=== PATIENT | female | born 1975 | race Caucasian/White ===

== ENCOUNTER 2017-12-24 18:09 | Inpatient (IN) | payer OTHER ==
[~2017-12-24] VITALS: Ht 162.6 cm; Wt 127.6 kg
[2017-12-24 19:37] LABS: ABSOLUTE BASOPHIL COUNT 0 /CUMM (0.0-0.2); ABSOLUTE EOSINOPHIL COUNT 0.4 /CUMM (0.0-0.7); ABSOLUTE GRANULOCYTE CT 8.9 /CUMM (1.4-6.5); ABSOLUTE LYMPH COUNT 2.2 /CUMM (1.2-3.4); ABSOLUTE MONOCYTE COUNT 0.5 /CUMM (0.10-0.60); BASOPHIL % 0.1 % (0.0-2.0); EOSINOPHIL % 3.4 % (0-5); GRANULOCYTE % 74.1 % (42.2-75.2); MEAN CORPUSCULAR HGB CONC 33.3 G/DL (33.0-37.0); MEAN PLATELET VOLUME 7.8 FL (7.4-10.4); RBC DISTRIBUTION WIDTH 14.4 % (11.5-14.5); RED BLOOD CELL CT 4.88 /CUMM (4.20-5.40)
--- NOTE | 2017-12-24 19:47 | ED GENERAL ADULT ---
History of Present Illness General Chief Complaint: General Adult Stated Complaint: BIBA FOR LUPUS FLARE-UP Source: patient Exam Limitations: no limitations Vital Signs & Intake/Output Vital Signs & Intake/Output Vital Signs Date Time Temp Pulse Resp B/P B/P Pulse O2 O2 Flow FiO2 Mean Ox Delivery Rate 12/25 0107 98.3 94 20 120/80 93 Room Air 12/25 0020 104/58 12/24 2348 98.3 84 20 98/52 95 Room Air 12/24 2159 97.7 92 16 124/59 96 Room Air 12/24 1817 97.9 99 16 138/65 98 Room Air ED Intake and Output 12/25 0000 12/24 1200 Intake Total 100 Output Total Balance 100 Intake, IV 100 Patient 220 lb Weight Weight Reported by Patient Measurement Method Allergies Coded Allergies: hydromorphone (From DILAUDID) (Mild, NAUSEA 12/24/17) Uncoded Allergies: STRAWBERRIES (Severe, ANAPHYLAXIS 12/24/17) MUSHROOMS (Mild, HIVES 12/24/17) Triage Note: PT BIBA FROM HOME FOR "PAIN ALL OVER FROM LUPUS" PER PT. PT STATED IT STARTED THIS AM. SHE TOOK ONE TRAMADOL W/ NO RELIEF. PT SCREAMS WHEN TOUCHED Triage Nurses Notes Reviewed? yes Onset: Abrupt Duration: day(s): (1), constant, continues in ED, getting worse Timing: recent history Injury Environment: home Severity: moderate, severe Severity Numbers: 10 No Modifying Factors: none Modifying Factors: Worsens With: movement. Associated Symptoms: back pain LMP (ages 10-50): unknown : No Patient currently breastfeeds: No HPI: 42-year-old female with a past medical history of lupus, ovarian/uterine cancer brought in by AMBULANCE for evaluation of a possible lupus flare. Patient reports that today she developed severe pain in her lower back radiating to her upper back. There was no trauma or triggering event pain began while at rest. The pain is described as sharp and stabbing and is severe 10 out of 10. It is worse with any type of movement she states she is unable to ambulate. She feels like the pain is so severe to be here feel short of breath. No abdominal pain nausea vomiting. She does note some numbness in her bilateral lower extremities no urinary symptoms bowel or bladder dysfunction fever hemoptysis lower extremity edema or trauma. She reports she has had multiple similar episodes in the past which is been admitted to [facility]. Her lupus history with Plaquenil. She tried taking tramadol at home without any improvement. (Melo Quick) Reconcile Medications Levothyroxine Sodium 100 MCG TABLET 1 TAB PO DAILY Hypothyroidism (Reported) Trazodone HCl 50 MG TABLET 0.5 TAB PO QPM Insomnia (Reported) (Aubree TORREZ,Nhan Keller) Past History Travel History Traveled to [place] past 21 day No Medical History Any Pertinent Medical History? see below for history Endocrine: LUPUS Cancer(s): cervical cancer, ovarian cancer Surgical History Surgical History: non-contributory Psychosocial History What is your primary language Tristanian Tobacco Use: Never used ETOH Use: occasional use Illicit Drug Use: denies illicit drug use Family History Hx Contributory? No (Melo Quick) Review of Systems Review of Systems Constitutional: Reports: no symptoms. EENTM: Reports: no symptoms. Respiratory: Reports: no symptoms. Cardiovascular: Reports: no symptoms. GI: Reports: no symptoms. Genitourinary: Reports: no symptoms. Musculoskeletal: Reports: see HPI, back pain, muscle pain, muscle stiffness. Skin: Reports: no symptoms. Neurological/Psychological: Reports: no symptoms. Hematologic/Endocrine: Reports: no symptoms. Immunologic/Allergic: Reports: no symptoms. All Other Systems: Reviewed and Negative (Melo Quick) Physical Exam Physical Exam General Appearance: well developed/nourished, alert, awake, anxious, moderate distress, obese Head: atraumatic, normal appearance Eyes: Bilateral: normal appearance, PERRL, EOMI. Ears, Nose, Throat: hearing grossly normal Neck: normal inspection, supple, full range of motion Respiratory: normal breath sounds, chest non-tender, no respiratory distress, lungs clear Cardiovascular: regular rate/rhythm, normal peripheral pulses Peripheral Pulses: 2+ radial (R), 2+ radial (L) Gastrointestinal: normal bowel sounds, soft, no organomegaly, tenderness ( bilateral flank) Back: patient is laying on her back and is unable to move in order to inspect and palpate her spine Extremities: normal inspection, no edema, range of motion of the bilateral lower extremities is reduced due to pain. Full range of motion of the bilateral upper extremities is intact sensory supply INTACT TO bilateral lower extremities vascular supply intact bilaterally Neurologic/Psych: no motor/sensory deficits, awake, alert, oriented x 3, normal mood/affect Skin: intact, normal color, warm/dry Lymphatic: no anterior cervical meredith Core Measures ACS in differential dx? No CVA/TIA Diagnosis: No Sepsis Present: No Sepsis Focused Exam Completed? No (Margarito RODRIGUEZ,Melo) Progress Differential Diagnoses I considered the following diagnoses in my evaluation of the patient: [Lupus flare, muscle strain, herniated disc, cauda equina, malignancy, epidural abscess , AAA, kidney stone, pyelonephritis, pneumonia, PE] Plan of Care: Orders Procedure Date/time Status Regular Diet 12/25 B Active XRY-LUMBOSACRAL SPINE 4 VIEWS 12/25 2216 Active XRY-CHEST XRAY, TWO VIEWS 12/25 2216 Active CBC WITHOUT DIFFERENTIAL 12/25 06 Active BASIC ELECTROLYTES PLUS BUN&CR 12/25 06 Active Weight 12/25 010 Active Vital Signs 12/25 010 Active Teach/Educate 12/25 99 Active Pain Treatment and Response 12/25 99 Active Nutritional Intake, Monitor 12/25 010 Active Isolation 12/25 99 Active Intake & Output 12/25 99 Active Patient Care Conference 12/25 010 Active Activity/Ambulation 12/25 010 Active D-DIMER 12/24 UNK Complete Add-on Test (ER Only) 12/24 2332 Active Pathway - chart 12/24 2305 Active House Staff 12/24 2305 Active Code Status 12/24 2305 Active Saline Lock 12/24 225 Active Misc Message 12/24 2256 Active ED Holding Orders 12/24 225 Active Admit to inpatient 12/24 225 Active Vital Signs 12/24 225 Active Code Status 12/24 2257 Complete Patient Data 12/24 2256 Active Intake & Output 12/24 2238 Active HUMAN BETA HCG SCREEN 12/24 1924 Complete EKG 12/24 192 Active Add-on Test (ER Only) 12/24 1856 Active URINALYSIS 12/24 1818 Active TROPONIN LEVEL 12/24 181 Complete COMPREHENSIVE METABOLIC PANEL 12/24 181 Complete CBC WITHOUT DIFFERENTIAL 12/24 181 Complete VTE Mechanical Prophylaxis 12/24 UNK Active Current Medications Sig/An Start time Last Medication Dose Stop Time Status Admin Trazodone HCl 25 MG QPM 12/25 2100 AC (Desyrel) Enoxaparin Sodium 40 MG DAILY 12/25 0900 AC (Lovenox) Hydroxychloroquine 200 MG DAILY 12/25 0900 AC Sulfate (Plaquenil 200MG Tab) Levothyroxine Sodium 0.1 MG DAILY AC 12/25 0700 AC (Synthroid) Methylprednisolone 40 MG Q8 12/25 0600 AC (Solumedrol) Morphine Sulfate 4 MG Q4P PRN 12/25 0115 AC (MORPHINE SULFATE) Lorazepam 1 MG Q6P PRN 12/24 2345 AC (Ativan) Acetaminophen 650 MG Q6P PRN 12/24 2315 AC (Tylenol) Oxycodone/ 1 TAB Q6P PRN 12/24 2315 AC Acetaminophen (Percocet) Laboratory Tests 12/24/17 1924: Anion Gap 9, Estimated GFR > 60, BUN/Creatinine Ratio 18.9, Glucose 105 H, Calcium 9.4, Total Bilirubin 0.6, AST 19, ALT 23, Alkaline Phosphatase 149 H, Troponin I < 0.01, Total Protein 7.1, Albumin 3.9, Globulin 3.2, Albumin/ Globulin Ratio 1.2, Total Beta HCG NEGATIVE, D-Dimer High Sensitivty 213, CBC w Diff NO MAN DIFF REQ, RBC 4.88, MCV 84.0, MCH 28.0, MCHC 33.3, RDW 14.4, MPV 7.8 , Gran % 74.1, Lymphocytes % 18.5 L, Monocytes % 3.9, Eosinophils % 3.4, Basophils % 0.1, Absolute Granulocytes 8.9 H, Absolute Lymphocytes 2.2, Absolute Monocytes 0.5, Absolute Eosinophils 0.4, Absolute Basophils 0 Patient is here for evaluation of severe low back pain that is possibly a lupus flare. She reports multiple similar episodes in the past. Currently she is here with severe low back pain that started today without trauma or triggering event it is similar to previous episodes of lupus. Exam is significantly limited secondary to pain causing patient to be unable to cooperate. Her vitals are stable labs ordered EKG. Initially CT scans were ordered however CAT scan currently is down patient refused to be transferred for a CAT scan or x-rays at this time secondary to pain. Patient was given multiple IV pain medications including IV Toradol IV morphine IV Tylenol IV Solu-Medrol and IV Ativan. Patient was able to get some relief when she lies still but is still unable to move at all. Exam is still very limited she is still unable to get any imaging done. Patient will require admission for intractable back pain and lupus flare. She will require serial labs IV pain meds, IV steroids physical therapy consult case management consult imaging of her back and rheumatologic consult. case discussed with Dr. Mak he agrees Initial ED EKG: none (Melo Quick) Departure Departure Disposition: STILL A PATIENT Condition: Stable Referrals: Unknown (PCP/Family) Departure Forms: Customer Survey General Discharge Information Admission Note Spoke With: Chantal Harding MD Documentation of Exam: Documentation of any treatments & extenuating circumstances including Concerns Regarding Discharge (functional status, medication knowledge or non-compliance, living conditions, etc.) that warrant an admission rather than observation: [ Patient required multiple IV pain medications in order to be comfortable she is still unable to move or ambulate secondary to pain she'll require IV pain control, serial labs, IV steroids, physical therapy, case management, rheumatology] (Melo Quick) Departure Clinical Impression Primary Impression: Lupus (systemic lupus erythematosus) Qualifiers: Systemic lupus erythematosus type: unspecified Systemic lupus erythematosus organ involvement: unspecified Qualified Code: M32.9 - Systemic lupus erythematosus, unspecified Secondary Impressions: Back pain PA/INSPECTOR PROCESS Co-Sign Statement Statement: ED Attending supervision documentation- [x] I saw and evaluated the patient. I have also reviewed all the pertinent lab results and diagnostic results. I agree with the findings and the plan of care as documented in the PA's/INSPECTOR PROCESS's documentation. 12/24/17, 22:45... pt with lupus flare, causing significant back pain... merits iv steroids, consider rheum consult/pulse dose steroids if not improved in AM, and other supportive meds. [] I have reviewed the ED Record and agree with the PA's/INSPECTOR PROCESS's documentation. [] Additions or exceptions (if any) to the PAs/INSPECTOR PROCESS's note and plan are summarized below: [] (Aubree TORREZ,Nhan Keller) Critical Care Note Critical Care Note Critical Care Time: non-applicable (Melo Quick)
[2017-12-24 19:58] LABS: PLATELET COUNT 286 /CUMM (130-400)
--- NOTE | 2017-12-24 23:11 | History & Physical ---
Jia Flores 12/24/17 2311: General Information and HPI MD Statement: I have seen and personally examined CHARISSA TAN and documented this H&P. The patient is a 42 year old F who presented with a patient stated chief complaint of [back pain/lupus flare]. Source of Information: patient Exam Limitations: no limitations History of Present Illness: 42-year-old female with a past medical history significant for systemic lupus erythematosus(not on any meds for SLE) , ovarian/uterine cancer S/P shelby/bso, b/l prophylactic mastectomy, who presented with a back pain x 1 day. [facility] reports that the pain started suddenly when she woke up, its was a shootimng pain that radiated from lower to upper back. 9/10 intensity. She feels that her 'spine locks up'. She took tramadol, but it didnt help her. Now her pain is 7.5/ 10. Also complains of numbness & tingling which comes & goes. She states that her back pain is generally triggered during her 'lupus flares'. Her last flare was 2 years ago for which she was taken to [facility]. She was dilaudid which helped her. However, she was placed on hydroxycholroquine during her flare which she continued for up to a year and was then discontinued of it. She follows Dr Hart in . Aslo mentions: dizziness, vertigo for the past few weeks. No room spinning around her Allergies/Medications Allergies: Coded Allergies: hydromorphone (From DILAUDID) (Mild, NAUSEA 12/24/17) Uncoded Allergies: STRAWBERRIES (Severe, ANAPHYLAXIS 12/24/17) MUSHROOMS (Mild, HIVES 12/24/17) Past History Travel History Traveled to [place] past 21 day No Medical History Endocrine: LUPUS Cancer(s): cervical cancer, ovarian cancer Surgical History Surgical History: non-contributory Past Family/Social History Family History Relations & Conditions if any Relation not specified for: Systemic lupus erythematosus Psychosocial History Where do you live? Home Who Do You Live With? spouse, child Services at Home: None Smoking Status: Never Smoked ETOH Use: occasional use Illicit Drug Use: denies illicit drug use Review of Systems Review of Systems Constitutional: Reports: chills. EENTM: Reports: no symptoms. Cardiovascular: Reports: no symptoms. Respiratory: Reports: no symptoms. GI: Reports: no symptoms. Genitourinary: Reports: no symptoms. Musculoskeletal: Reports: see HPI. Skin: Reports: no symptoms. Neurological/Psychological: Reports: no symptoms. Hematologic/Endocrine: Reports: no symptoms. Immunologic/Allergic: Reports: no symptoms. All Other Systems: Reviewed and Negative Exam & Diagnostic Data Last 24 Hrs of Vital Signs/I&O Vital Signs Date Time Temp Pulse Resp B/P B/P Pulse O2 O2 Flow FiO2 Mean Ox Delivery Rate 12/25 0654 98.7 97 20 110/80 95 Room Air 12/25 0107 98.3 94 20 120/80 93 Room Air 12/25 0020 104/58 12/24 2348 98.3 84 20 98/52 95 Room Air 12/24 2159 97.7 92 16 124/59 96 Room Air 12/24 1817 97.9 99 16 138/65 98 Room Air Intake & Output 12/25 0800 12/25 0000 12/24 1600 Intake Total 100 Output Total Balance 100 Intake, IV 100 Patient 281 lb 220 lb Weight Weight Bed scale Reported by Patient Measurement Method Physical Exam General Appearance Alert, Oriented X3, Cooperative, No Acute Distress Skin No Rashes, No Breakdown, No Significant Lesion Skin Temp/Moisture Exam: Cool/Dry Sepsis Skin Exam (color): Normal for Ethnicity HEENT Atraumatic, PERRLA, EOMI, Mucous Membr. moist/pink Neck Supple, No JVD, No thryomegaly, +2 Carotid Pulse wo Bruit Cardiovascular Regular Rate, Normal S1, Normal S2, No Murmurs Lungs Clear to Auscultation, Normal Air Movement Abdomen Normal Bowel Sounds, Soft, No Tenderness, No Hepatospenomegaly, No Masses Neurological Normal Speech, Strength at 5/5 X4 Ext, Normal Tone, Sensation Intact Extremities No Clubbing, No Cyanosis, No Edema, Normal Pulses, No Tenderness/ Swelling Assessment/Plan Assessment: 42-year-old female with a past medical history significant for systemic lupus erythematosus(not on any meds for SLE) , ovarian/uterine cancer S/P shelby/bso, b/l prophylactic mastectomy, who presented with a back apin x 1 day. Vitals on adm: Stable, afebrile Problems: 1. SLE with Lupus Flare 2. Severe back pain 3. History of Hypothyroidism A& P: -Admit to gen med floor -pain control: follow pain pathway. -Please note; rolly gives her severe nausea/vomiting. -Solumedrol IV 40 mg Q8 -Start hydroxycholorquine 200mg daily. -Obtain old records from Dr Hart in . DVT PX: Enoxaparin SQ Diet: regular Code: FC (Patient states that if her quality of life is expected to be poor, she would not like aggressive intervention including chest compressions and intubation, however, if her condition is not critical she would like to have an attempt of CPR) As Ranked By This Provider Problem List: 1. Lupus (systemic lupus erythematosus) Qualifiers Systemic lupus erythematosus type: unspecified Systemic lupus erythematosus organ involvement: unspecified Qualified Code: M32.9 - Systemic lupus erythematosus, unspecified 2. Back pain Core Measures/Misc (01/12) Acute Coronary Syndrome ACS Diagnosis: No Congestive Heart Failure Congestive Heart Failure Diagnosis No Cerebrovascular Accident CVA/TIA Diagnosis: No VTE (View Protocol) VTE Risk Factors Age>40 No Mechanical VTE Prophylaxis d/t N/A MechProphylax Ordered No VTE Pharm Prophylaxis d/t NA PharmProphylax ordered Sepsis (View protocol) Sepsis Present: No If YES complete Sepsis Event Note If YES complete Sepsis Event Note Chantal Harding MD 12/25/17 0004: Core Measures/Misc (01/12) Sepsis (View protocol) If YES complete Sepsis Event Note If YES complete Sepsis Event Note Attending MD Review Statement Attending Statement Attending MD Statement: examined this patient, discuss w/resident/PA/TELEMARKETING REPRESENTATIVE, agreed w/resident/PA/TELEMARKETING REPRESENTATIVE, reviewed EMR data (avail) Attending Assessment/Plan: 42F PMH SLE presenting with lupus flare. Patient typically has asymptomatic lupus and had been taken off of Plaquenil many months ago. Her flares occur every 1-2 years and present as diffuse body pain, worst in lower back, and this occurrence is typical for a flare. She is unable to move due to pain. She is breathing comfortably, no GI symptoms, no neurological symptoms. Neuro and cardiopulmonary exam are normal. 1. Lupus flare 2. Intractable back pain Plan - Admit to general medicine - Start Solumedrol 40mg daily - Start Plaquenil - Morphine IV 4mg q4h PRN - Ativan 1mg q6h PRN - Obtain records from patient's gasket inspector and for consult - Continue home medications - DVT PPx Gokul TORREZ,Jose Manuel 12/25/17 0047: General Information and HPI Allergies/Medications Home Med list Cyclobenzaprine HCl 10 MG TABLET 1 TAB PO TID PRN Back Pain . Diazepam (Valium) 2 MG TABLET 1 TAB PO TID PRN Back pain/SLE flare . Levothyroxine Sodium 100 MCG TABLET 1 TAB PO DAILY Hypothyroidism (Reported) Prednisone 20 MG TABLET 2 TAB PO DAILY SLE/Back pain . Trazodone HCl 50 MG TABLET 0.5 TAB PO QPM Insomnia (Reported) Core Measures/Misc (01/12) Sepsis (View protocol) If YES complete Sepsis Event Note If YES complete Sepsis Event Note Resident Review Statement Resident Statement: examined this patient, discussed with production intern, reviewed EMR data (avail) Other Findings: 42 yo F with PMH of SLE (dx at age 23), uterine cancer s/p hysterectomy with b/l mastectomy presented to the ED with complains of severe lower back since this morning. The patient states she was in her usual state of health until this morning when she was getting ready for work and started having severe, sharp lower back radiating upwards, 9/10 in severity, aggravated with movement/ ambulation and tingling sensation in her feet. She describes her back as 'spine locking up'. She took tramadol for her pain without relief. She also has been having some dizzy spells lately which she describes as room spinning around. She states that her back pain is generally triggered during her 'lupus flares'. Her last flare was 2 years ago for which she was taken to [facility]. Currently she is not on any medications for SLE. However, she was placed on hydroxycholroquine during her flare which she continued for up to a year and was then discontinued of it. She follows Dr Hart in . ROS: dizziness, vertigo, tingling in feet Physical Exam: General Appearance: well developed/nourished, moderate distress Head: atraumatic, normal appearance Eyes: bilateral normal appearance, PERRL Ears, Nose, Throat: normal hearing and speech Respiratory: normal breath sounds (anterior chest), chest non-tender, no respiratory distress Cardiovascular: regular rate/rhythm, normal S1, S2, no M/R/G Gastrointestinal: soft, non-tender Back: unable to be assessed as patient has significant pain with movement. SLR not performed. Extremities: no edema Neurologic/Psych: awake, alert, oriented x 3, Skin: intact, normal color, warm/dry Assessment: 1. SLE with Lupus Flare 2. Severe back pain 3. History of Hypothyroidism Plan: * Admit patient to general medicine floor * Start IV Solu-Medrol 40mg q8. Will taper rapidly. * Start hydroxycholorquine 200mg daily. Can increase to BID if needed. * Pain control with tylenol (mild), percocet (moderate), morphine (severe). Patient states dilaudidd gives her severe nausea/vomiting. * Obtain old records from Dr Hart in . * Diet: Regular * DVT Prophylaxis: SC Lovenox * Code: Full Code (Patient states that if her quality of life is expected to be poor, she would not like aggressive intervention including chest compressions and intubation, however, if her condition is not critical she would like to have an attempt of CPR)
[2017-12-24] MEDS ORDERED: LEVOTHYROXINE100 MC1 PO (23:51)
[2017-12-24] MEDS ORDERED: TRAZODONE HCL50 M1 PO (23:53)
[2017-12-25 01:07] VITALS: BP 120/80
[2017-12-25 06:54] VITALS: BP 110/80
--- NOTE | 2017-12-25 07:43 | PN- Housestaff ---
See Addendum Alexandre Flores 12/25/17 0743: Subjective Follow-up For: Intractable back pain Subjective: Patient seen and examined at bedside. she was complaining of intractable back pain since 3 days. She denies fever, chills, abdominal pain, palpitation, diarrhea, constipation, burning micturition Review of Systems Constitutional: Reports: see HPI. Objective Last 24 Hrs of Vital Signs/I&O Vital Signs Date Time Temp Pulse Resp B/P B/P Pulse O2 O2 Flow FiO2 Mean Ox Delivery Rate 12/25 1541 98.2 102 20 120/80 94 12/25 0654 98.7 97 20 110/80 95 Room Air 12/25 0107 98.3 94 20 120/80 93 Room Air 12/25 0020 104/58 12/24 2348 98.3 84 20 98/52 95 Room Air 12/24 2159 97.7 92 16 124/59 96 Room Air Intake & Output 12/25 1600 12/25 0800 12/25 0000 Intake Total 810 240 100 Output Total 800 Balance 10 240 100 Intake, IV 10 100 Intake, Oral 800 240 Output, Urine 800 Patient 281 lb 220 lb Weight Weight Bed scale Reported by Patient Measurement Method Physical Exam General Appearance: Alert, Oriented X3, Cooperative, No Acute Distress HEENT: Atraumatic, PERRLA, EOMI, Mucous Membr. moist/pink Neck: Supple, No JVD, No thryomegaly, +2 Carotid Pulse wo Bruit Lymphatic: Axillary nl, Cervical nl Lungs: Clear to Auscultation, Normal Air Movement Abdomen: Normal Bowel Sounds, Soft, No Tenderness, No Hepatospenomegaly, No Masses Neurological: Normal Gait, Normal Speech, Strength at 5/5 X4 Ext, Normal Tone, Sensation Intact, Cranial Nerves 3-12 NL, Reflexes 2+ Extremities: No Clubbing, No Cyanosis, No Edema, Normal Pulses, No Tenderness/ Swelling Assessment/Plan Assessment: 42-year-old female with past medical history of SLE(status post followed by spanish medical interpreter), uterine cancer status post hysterectomy with prophylactic bilateral mastectomy, presented to emergency department complaining of severe back pain. At the time of presentation to emergency department her labs and vitals are following Vitals: Temperature 98.3, pulse 94, respiration 20, BP 1 20/80, pulse oximetry 93% Labs: WBC 12, hemoglobin 13.6, hematocrit 41, MCV 84 Sodium 140, potassium 4.6, chloride 105, carbon dioxide 24, bun 21, creatinine 0.9, glucose 105 AST 19, ALT 23, ALP 149 CRP 1.4, ESR 27 Problems list: -Intractable low back pain -History of SLE -Past medical history of uterine cancer -History of hypothyroidism Plan: -Admit to general medical floor -Pain medication -Contacted her spanish medical interpreter -X-ray of lumbar spine -X-ray of lumbar spine showing L3-L4 degeneration -There is no fracture -No muscle spasm -Prednisone 40 mg for 4 days -Flextra muscle relaxant -Ativan for anxiety -Anticipated discharge tomorrow morning if pain subsided. -Discharge summary will be sent to spanish medical interpreter -We will follow up with spanish medical interpreter on outpatient basis -Patient counseled regarding follow-up spanish medical interpreter -Full code -GI DVT profile Problem List: 1. Lupus (systemic lupus erythematosus) 2. Back pain Pain Ratin Pain Location: Backache Pain Goal: Remain pain free Pain Plan: Pain management pathway Tomorrow's Labs & Rationales: No lab Diamond,Janes 12/25/17 1308: Attending MD Review Statement Attending Statement Attending MD Statement: examined this patient, discuss w/resident/PA/FILM AND VIDEO GRAPHICS DESIGNER, agreed w/resident/PA/FILM AND VIDEO GRAPHICS DESIGNER, discussed with family, reviewed EMR data (avail), discussed with nursing, discussed with case mgmt, reviewed images, amended to note Attending Assessment/Plan: 42 o/f with pmh of SLE being managed by PCP outpatient off maintenance therpay for few years now comes with intractable back pain. Pateint back pain is improved this morning with steorids. Xray of lumbar spine is pending. Her CRP is borderline elevated 1.4 without diffuse constellaton of symptoms seen in SLE flare up. I would give her muscle relaxants at discharge with PO steorid taper and close follow up with PCP.
[2017-12-25 09:16] LABS: ABSOLUTE BASOPHIL COUNT 0 /CUMM (0.0-0.2); ABSOLUTE EOSINOPHIL COUNT 0 /CUMM (0.0-0.7); ABSOLUTE GRANULOCYTE CT 9.5 /CUMM (1.4-6.5); ABSOLUTE LYMPH COUNT 0.8 /CUMM (1.2-3.4); ABSOLUTE MONOCYTE COUNT 0 /CUMM (0.10-0.60); BASOPHIL % 0.1 % (0.0-2.0); EOSINOPHIL % 0 % (0-5); HEMATOCRIT 40.7 % (37-47); MEAN CORPUSCULAR HGB 28.1 PG (27.0-31.0); MEAN CORPUSCULAR HGB CONC 33.9 G/DL (33.0-37.0); MEAN PLATELET VOLUME 7.5 FL (7.4-10.4); PLATELET COUNT 352 /CUMM (130-400); RBC DISTRIBUTION WIDTH 14.4 % (11.5-14.5); RED BLOOD CELL CT 4.91 /CUMM (4.20-5.40); WHITE BLOOD CELL COUNT 10.3 /CUMM (4.8-10.8)
[2017-12-25 10:01] LABS: GRANULOCYTE % 91.8 % (42.2-75.2)
[2017-12-25] MEDS ORDERED: CYCLOBENZAPRINE10 M1 PO ×2 (10:06→17:12)
[2017-12-25] MEDS ORDERED: PREDNISONE10 M2 PO (10:06)
[2017-12-25] MEDS ORDERED: VALIUM2 M1 PO ×3 (10:06→17:12)
--- NOTE | 2017-12-25 10:07 | Patient Discharge Instructions ---
Discharge Instructions General Discharge Information Special Instructions: - Please follow up with your primary care physician within 1-2 weeks of discharge. Inform your primary care physician of this admission to [facility]. - Continue your current medications per discharge instructions. - Please watch for these problems: Fever, Chills, Nausea, Vomiting, Shortness of Breath, Productive Cough, Chest Pain/Discomfort, Abdominal Pain, Active Bleeding or Bloody urine/stool. Diet Continue normal diet: Yes Activity Full Activity/No Limits: Yes Acute Coronary Syndrome Inclusion Criteria At DC or during hospital stay patient has or had the following: ACS DIAGNOSIS No Discharge Core Measures Meds if any: Prescribed or Continued at Discharge Meds if any: NOT Prescribed or Continued at Discharge Congestive Heart Failure Inclusion Criteria At DC or during hospital stay patient has or had the following: CHF DIAGNOSIS No Discharge Core Measures Meds if any: Prescribed or Continued at Discharge Meds if any: NOT Prescribed or Continued at Discharge Cerebrovascular accident Inclusion Criteria At DC or during hospital stay patient has or had the following: CVA/TIA Diagnosis No Discharge Core Measures Meds if any: Prescribed or Continued at Discharge Meds if any: NOT Prescribed or Continued at Discharge Venous thromboembolism Inclusion Criteria VTE Diagnosis No VTE Type NONE VTE Confirmed by (Test) NONE Discharge Core Measures - Per Current guidelines, there needs to be overlap - treatment for the first 5 days of Warfarin therapy. - If discharged on Warfarin prior to 5 days of - overlap therapy, the patient will need to be - assessed for post discharge needs including - *Post discharge parental anticoagulation - *Warfarin and/or parental anticoagulation education - *Follow up date to check INR post discharge At least 5 days overlap therapy as Inpatient No Meds if any: Prescribed or Continued at Discharge Note: Overlap Therapy is Warfarin and Anticoagulant Meds if any: NOT Prescribed or Continued at Discharge
[2017-12-25] MEDS ORDERED: PREDNISONE20 M1 PO ×2 (10:11→17:12)
--- NOTE | 2017-12-25 14:35 | Discharge Summary ---
Visit Information Visit Dates Admission Date: 12/24/17 Discharge Date: 12/26/17 Hospital Course Course Attending Physician: Janes Fields MD Primary Care Physician: Unknown Hospital Course: Please fax above Discharge summery to Dr Meka Hart at [phone]. 42-year-old female morbidly obese with BMI 48.3kg/m2, with past medical history of SLE(status post followed by capping machine operator), uterine cancer status post hysterectomy with prophylactic bilateral mastectomy, presented to emergency department complaining of severe back pain. Hospital course: At the time of presentation to emergency department her labs and vitals are following Vitals: Temperature 98.3, pulse 94, respiration 20, BP 1 20/80, pulse oximetry 93% Labs: WBC 12, hemoglobin 13.6, hematocrit 41, MCV 84 Sodium 140, potassium 4.6, chloride 105, carbon dioxide 24, bun 21, creatinine 0.9, glucose 105 AST 19, ALT 23, ALP 149 CRP 1.4, ESR 27 She was treated for the following problem in hospital. Intractable backache: She was complaining of severe backache 02/04 at the time of presentation. Patient shifted to general medical floor for further management. X-ray lumbar spine and x-ray chest done. There was no acute changes except degenerative changes in L3-L4 vertebral. She was given pain medication, bedrest, started 40 mg IV steroid, tablet Flexeril, hydroxychloroquine and lorazepam (For anxiety). Patient had no insurance at that time. Contacted and discussed discussed with her capping machine operator about her care and hospital. Her home medication continued. She started feeling good on second day, started coming out of the bed and walk in hallway. She discharged on 40 mg short course of oral steroid for 5 days, Flexeril, lorazepam. Allergies: Coded Allergies: hydromorphone (From DILAUDID) (Mild, NAUSEA 12/24/17) Uncoded Allergies: STRAWBERRIES (Severe, ANAPHYLAXIS 12/24/17) MUSHROOMS (Mild, HIVES 12/24/17) Disposition Summary Disposition Principal Diagnosis: Intractable backache Additional Diagnosis: History of hypothyroidism, History of SLE Discharge Disposition: home or self care Discharge Instructions General Discharge Information Code Status: Full Code Patient's Diet: Regular diet Patient's Activity: Self-limited Follow-Up Instructions/Appts: Follow-up with primary care doctor in 1 week Follow up with capping machine operator in 2 weeks Medications at Discharge Discharge Medications: Continue taking these medications: Levothyroxine Sodium (Levothyroxine Sodium) 100 MCG TABLET 1 Tablet ORAL DAILY Qty = 30 Comments: LAST TAKEN: 12/26/17 @ 6 AM Trazodone HCl (Trazodone HCl) 50 MG TABLET 0.5 Tablet ORAL Every night Qty = 30 Comments: LAST TAKEN: 12/25/17 @ 10 PM Start taking the following new medications: Cyclobenzaprine HCl (Cyclobenzaprine HCl) 10 MG TABLET 1 Tablet ORAL THREE TIMES DAILY as needed for Back Pain Qty = 30 No Refills Instructions: . Diazepam (Valium) 2 MG TABLET 1 Tablet ORAL THREE TIMES DAILY as needed for Back pain/SLE flare Qty = 15 No Refills Instructions: . Prednisone (Prednisone) 20 MG TABLET 2 Tablet ORAL DAILY Qty = 10 No Refills Instructions: . Copies To: Diamond TORREZ,Janes
--- NOTE | 2017-12-25 14:41 | RADIOLOGY REPORT ---
EXAMINATION: XR CHEST CLINICAL INFORMATION: Thoracic back pain. COMPARISON: Pneumonia. TECHNIQUE: 2 views of the chest were obtained. FINDINGS: Lungs are clear and well expanded. No focal consolidative disease, pleural effusion, or pneumothorax. The cardiac silhouette and upper mediastinal contours are normal. No acute osseous finding. IMPRESSION: Unremarkable chest radiograph. No consolidative disease or effusion.
--- NOTE | 2017-12-25 14:59 | RADIOLOGY REPORT ---
EXAMINATION: XR LUMBOSACRAL SPINE CLINICAL INFORMATION: Low back pain. Question fracture or herniated disc. COMPARISON: No relevant prior imaging. TECHNIQUE: 3 views of the lumbar spine were obtained. 5 images total. FINDINGS: Alignment is normal. Vertebral body heights are preserved. No acute fracture. There is slight loss of intervertebral disc height at L3-L4. Mild disc osteophyte spurring is visualized at multiple levels. Sacroiliac joints are symmetric. Visualized bowel gas pattern is normal. IMPRESSION: Mild disc degeneration at L3-L4. No evidence of acute fracture and no spinal subluxation.
[2017-12-25 15:41] VITALS: BP 120/80
[2017-12-25 22:30] VITALS: BP 106/60
[2017-12-26 06:55] VITALS: BP 90/60
--- NOTE | 2017-12-26 07:01 | PN- Housestaff ---
Alexandre Flores 12/26/17 0701: Subjective Follow-up For: Backache Subjective: Patient seen and examined at bedside. She is complaining of pain but it severity decrease compared to yesterday. She walked in hallways. She said I retain my humor and feeling good to go home. She complains fever, chills, chest pain, palpitation, diarrhea, constipation, abdominal pain, burning micturition Review of Systems Constitutional: Reports: see HPI. Objective Last 24 Hrs of Vital Signs/I&O Vital Signs Date Time Temp Pulse Resp B/P B/P Pulse O2 O2 Flow FiO2 Mean Ox Delivery Rate 12/26 0655 98.0 87 18 90/60 92 12/25 2230 98.6 94 18 106/60 94 Room Air Intake & Output 12/26 1600 12/26 0800 12/26 0000 Intake Total 120 120 Output Total Balance 120 120 Intake, IV 20 20 Intake, Oral 100 100 Physical Exam General Appearance: Alert, Oriented X3, Cooperative, No Acute Distress, Mild Distress Lungs: Clear to Auscultation, Normal Air Movement Abdomen: Normal Bowel Sounds, Soft, No Tenderness, No Hepatospenomegaly, No Masses Extremities: No Clubbing, No Cyanosis, No Edema, Normal Pulses, No Tenderness/ Swelling Assessment/Plan Assessment: 42-year-old female morbidly obese with BMI 48.3kg/m2, with past medical history of SLE(status post followed by car sales consultant), uterine cancer status post hysterectomy with prophylactic bilateral mastectomy, presented to emergency department complaining of severe back pain. At the time of presentation to emergency department her labs and vitals are following Vitals: Temperature 98.3, pulse 94, respiration 20, BP 1 20/80, pulse oximetry 93% Labs: WBC 12, hemoglobin 13.6, hematocrit 41, MCV 84 Sodium 140, potassium 4.6, chloride 105, carbon dioxide 24, bun 21, creatinine 0.9, glucose 105 AST 19, ALT 23, ALP 149 CRP 1.4, ESR 27 Problems list: -Intractable low back pain -History of SLE -Past medical history of uterine cancer -History of hypothyroidism Plan: -Admit to general medical floor -Pain medication -Contacted her car sales consultant -X-ray of lumbar spine -X-ray of lumbar spine showing L3-L4 degeneration -There is no fracture -No muscle spasm -Prednisone 40 mg for 4 days -Flextra muscle relaxant -Ativan for anxiety -Anticipated discharge today -Discharge summary will be sent to car sales consultant -We will follow up with car sales consultant on outpatient basis -Patient counseled regarding follow-up car sales consultant -Full code -GI DVT profile Problem List: 1. Back pain 2. Lupus (systemic lupus erythematosus) Pain Ratin Pain Location: Back Pain Goal: Remain pain free Pain Plan: Pain management pathway Tomorrow's Labs & Rationales: No labs Janes Fields 12/26/17 1022: Attending MD Review Statement Attending Statement Attending MD Statement: examined this patient, discuss w/resident/PA/WATERPROOFING MIXER, agreed w/resident/PA/WATERPROOFING MIXER, discussed with family, reviewed EMR data (avail), discussed with nursing, discussed with case mgmt, reviewed images, amended to note Attending Assessment/Plan: 42 o/f with pmh of SLE being managed by PCP outpatient off maintenance therpay for few years now comes with intractable back pain. Pateint back pain is improved this morning. Xray of lumbar spine with degenrative disease. Her CRP is borderline elevated 1.4 without diffuse constellaton of symptoms seen in SLE flare up. I would give her muscle relaxants at discharge with PO steorid taper and close follow up with PCP. Already spoke to her PCP who is aware. Provide her work note. Anticipate discharge soon.
== END 2017-12-26 13:55 | DRG 347 ==
LOC: ERH 18:09 → 2NA 22:57 → ERHI 22:57 → ENRESERV 12-25 00:03 → 2NA 12-25 00:40 → ENPENDDIS 12-26 09:57 → 2NA 12-26 13:55
PROVIDERS: Internal Medicine; Physician Assistant Medical
DX: M47.816 Spondylosis without myelopathy or radiculopathy, lumbar region (principal); Z68.42 Body mass index [BMI] 45.0-49.9, adult; E66.01 Morbid (severe) obesity due to excess calories; M32.9 Systemic lupus erythematosus, unspecified; M54.5 Low back pain; F41.9 Anxiety disorder, unspecified; E03.9 Hypothyroidism, unspecified; Z85.43 Personal history of malignant neoplasm of ovary; Z85.42 Personal history of malignant neoplasm of other parts of uterus; Z90.710 Acquired absence of both cervix and uterus; Z91.018 Allergy to other foods; Z88.5 Allergy status to narcotic agent
CPT/HCPCS: 2NAP; 84133; 84300; 86160; ERO; 36592; 71046; 72110; 81025; 82436; 82570; 93005; 93010; 96374; 96375; J0131; J1650; J1885; J2920; J2930